=== PATIENT | male | born 1990 | race Caucasian/White ===

== ENCOUNTER 2021-09-29 18:41 | Inpatient (IN) | payer OTHER ==
[2021-09-29 19:18] VITALS: BMI 35.2
[2021-09-29] MEDS ORDERED: SODIUM CHLORIDE 1,000 ML IV STA (21:13)
[2021-09-29 22:00] LABS: HEMATOCRIT 44.6 % (35.4-49); HEMOGLOBIN 15.3 GM/dL (11.7-16.9); MCH 30.8 pg (25.7-33.7); MCHC 34.2 g/dl (32.0-35.9); MEAN CELL VOLUME 89.8 fl (80-96); MEAN PLT VOLUME 7.9 fl (7.5-11.1); PLATELET COUNT 236 10^3/uL (134-434); RBC 4.96 M/mm3 (4.00-5.60); RDW 13.2 % (11.9-15.9); WHITE BLOOD COUNT 13.2 K/mm3 (4.0-10.0)
[2021-09-29 22:24] LABS: CALCIUM 8.6 mg/dL (8.5-10.1)
[2021-09-29 22:25] LABS: ALBUMIN 3.8 g/dl (3.4-5.0); BLOOD UREA NITROGEN 7.3 mg/dL (7-18)
[2021-09-29 22:28] LABS: CREATININE 0.9 mg/dL (0.55-1.3)
[2021-09-29 22:29] LABS: BILIRUBIN,TOTAL 2.4 mg/dL (0.2-1); TOT PROT 7.3 g/dl (6.4-8.2)
[2021-09-29 23:10] LABS: ANISOCYTOSIS 1+; MACROCYTOSIS 0; OVALOCYTE 1+
[2021-09-30] MEDS ORDERED: BENZOCAINE/MENTH/CETYLPYRD CL 1 EACH LOZENGE MM PRN (01:24)
[2021-09-30] MEDS ORDERED: BENZOCAINE/MENTH/CETYLPYRD CL 1 EACH LOZENGE MM ONE (01:32)
[2021-09-30] MEDS ORDERED: PIPERACILLIN/TAZOB 4.5 GM 4.5 GM in DEXTROSE 5%-WATER 100 ML IVPB ONE (01:56)
[2021-09-30] MEDS ORDERED: PIPERACILLIN/TAZOB 4.5 GM 4.5 GM/100 ML BAG IVPB ONE (02:14)
[2021-09-30] MEDS ORDERED: ONDANSETRON 4 MG/2 ML VIAL IVPUSH ONE (02:59)
[2021-09-30] MEDS ORDERED: ACETAMINOPHEN 1000 MG/100 ML BAG IVPB ONE (02:59)
[2021-09-30] MEDS ORDERED: SODIUM CHLORIDE 0.45% 1,000 ML IV SCH (03:30)
[2021-09-30] MEDS ORDERED: ONDANSETRON 4 MG/2 ML VIAL ONE (04:12)
[2021-09-30] MEDS ORDERED: ACETAMINOPHEN INJECTION 100 ML IVPB ONE (04:12)
[2021-09-30 05:05] LABS: EPI CELLS 2 /uL (0-25.1); HYALINE CASTS 0 /uL (0-3.1); URINE APPEARANCE CLEAR; URINE BACTERIA 2 /uL (0-1359); URINE BILIRUBIN NEGATIVE (NEGATIVE); URINE COLOR DK YELLOW; URINE GLUCOSE (UA) NEGATIVE (NEGATIVE); URINE KETONE NEGATIVE (NEGATIVE); URINE LEUK ESTERASE NEGATIVE (NEGATIVE); URINE NITRITE NEGATIVE (NEGATIVE); URINE PROTEIN 1+ (NEGATIVE); URINE RBC 10 /uL (0-23.9); URINE WBC 7 /uL (0-25.8)
[2021-09-30] MEDS: LACTATED RINGERS SOLUTION 1,000 ML/1,000 ML INFUS.BAG IV SCH ×2 (06:10→17:00)
[2021-09-30] MEDS: ENOXAPARIN NA (PORCINE) 40 MG/0.4 ML DISP.SYRIN SQ SCH (10:21)
[2021-09-30] MEDS: ONDANSETRON 4 MG/2 ML VIAL IVPUSH PRN ×2 (10:22→22:18)
[2021-09-30 11:05] LABS: BASO % 0.1 % (0-2.0); EOS % 0.7 % (0-4.5); HEMATOCRIT 39.5 % (35.4-49); HEMOGLOBIN 13.5 GM/dL (11.7-16.9); LYMPH % 3.9 % (8-40); MCH 30.8 pg (25.7-33.7); MCHC 34.3 g/dl (32.0-35.9); MEAN PLT VOLUME 8.2 fl (7.5-11.1); NEUT % 86.3 % (42.8-82.8); PLATELET COUNT 184 10^3/uL (134-434); RBC 4.39 M/mm3 (4.00-5.60)
[2021-09-30] MEDS ORDERED: PIPERACILLIN/TAZOB 3.375 GM 3.375 GM in DEXTROSE 5%-WATER - 50 ML IVPB SCH (11:30)
[2021-09-30 11:32] LABS: CREATININE 0.9 mg/dL (0.55-1.3)
[2021-09-30 11:33] LABS: ALBUMIN 3.4 g/dl (3.4-5.0); BLOOD UREA NITROGEN 7.7 mg/dL (7-18); CALCIUM 8.2 mg/dL (8.5-10.1)
[2021-09-30 11:36] LABS: BILIRUBIN,DIRECT 2.3 mg/dL (0.0-0.2)
[2021-09-30 11:37] LABS: PHOSPHOROUS 2.4 mg/dL (2.5-4.9); TOT PROT 6.2 g/dl (6.4-8.2)
[2021-09-30 13:57] LABS: INR 1.28 (0.83-1.09); PROTHROMBIN TIME (PATIENT) 14.8 SEC (9.7-13.0)
[2021-09-30 14:05] LABS: COCAINE, UR NEGATIVE (NEGATIVE)
[2021-09-30 14:06] LABS: METHADONE, UR NEGATIVE (NEGATIVE); PHENCYCLIDINE,URINE NEGATIVE (NEGATIVE); URINE BENZODIAZEPINES NEGATIVE (NEGATIVE)
[2021-09-30 14:11] LABS: OPIATES, URI NEGATIVE (NEGATIVE); URINE AMPHETAMINES NEGATIVE (NEGATIVE); URINE BARBITURATES NEGATIVE (NEGATIVE)
[2021-09-30 14:55] LABS: HIV INTERPRETATION NEGATIVE (NEGATIVE)
[2021-09-30] MEDS ORDERED: PIPERACILLIN/TAZOBACTAM 3.375 GM VIAL IVPB ONE (15:21)
[2021-09-30] MEDS ORDERED: DEXTROSE 5%-WATER - 50 ML IVPB ONE (15:22)
[2021-09-30] MEDS ORDERED: IBUPROFEN 800 MG/8 ML IJ IVPB ONE (17:44)
[2021-09-30] MEDS ORDERED: PIPERACILLIN/TAZOB 4.5 GM 4.5 GM in DEXTROSE 5%-WATER 100 ML IVPB SCH (18:00)
[2021-09-30] MEDS ORDERED: DEXTROSE 5%-WATER 100 ML IVPB ONE (18:42)
[2021-09-30] MEDS ORDERED: PIPERACILLIN/TAZOBACTAM 4.5 GM VIAL IVPB ONE (18:42)
[2021-09-30] MEDS: PIPERACILLIN/TAZOB 4.5 GM 4.5 GM in DEXTROSE 5%-WATER 100 ML IVPB SCH (18:43)
[2021-09-30 22:57] LABS: BASO % 0.1 % (0-2.0); EOS % 0.7 % (0-4.5); HEMATOCRIT 39.2 % (35.4-49); HEMOGLOBIN 13.5 GM/dL (11.7-16.9); LYMPH % 5.7 % (8-40); MCH 30.7 pg (25.7-33.7); MCHC 34.5 g/dl (32.0-35.9); MEAN PLT VOLUME 8.3 fl (7.5-11.1); MONO % 7.5 % (3.8-10.2); PLATELET COUNT 183 10^3/uL (134-434); RDW 13.1 % (11.9-15.9); WHITE BLOOD COUNT 9.9 K/mm3 (4.0-10.0)
[2021-09-30 23:18] LABS: CALCIUM 8.3 mg/dL (8.5-10.1)
[2021-09-30 23:19] LABS: ALBUMIN 3.2 g/dl (3.4-5.0); BLOOD UREA NITROGEN 7.9 mg/dL (7-18)
[2021-09-30 23:23] LABS: BILIRUBIN,TOTAL 3.3 mg/dL (0.2-1)
[2021-09-30 23:24] LABS: TOT PROT 6.3 g/dl (6.4-8.2)
[2021-10-01] MEDS ORDERED: DEXTROSE 5%-WATER 100 ML IVPB ONE ×2 (00:14→10:28)
[2021-10-01] MEDS ORDERED: PIPERACILLIN/TAZOBACTAM 4.5 GM VIAL IVPB ONE ×2 (00:14→10:27)
[2021-10-01] MEDS: PIPERACILLIN/TAZOB 4.5 GM 4.5 GM in DEXTROSE 5%-WATER 100 ML IVPB SCH ×2 (02:18→10:34)
[2021-10-01] MEDS ORDERED: POTASSIUM CHLORIDE TABS 20 MEQ TABLET.ER (FP) PO ONE (02:25)
[2021-10-01] MEDS: KCL 10 MEQ IVPB 10 MEQ/100 ML INFUS.BAG IVPB SCH ×3 (03:35→10:06)
[2021-10-01] MEDS ORDERED: ACETAMINOPHEN 1000 MG/100 ML BAG IVPB ONE (04:04)
[2021-10-01] MEDS ORDERED: IBUPROFEN 800 MG/8 ML IJ IVPB ONE (06:15)
[2021-10-01] MEDS: LACTATED RINGERS SOLUTION 1,000 ML/1,000 ML INFUS.BAG IV SCH (06:20)
[2021-10-01 07:44] LABS: BASO % 0.1 % (0-2.0); EOS % 1.3 % (0-4.5); HEMATOCRIT 38.8 % (35.4-49); LYMPH % 5.2 % (8-40); MCH 30.2 pg (25.7-33.7); MCHC 33.5 g/dl (32.0-35.9); MEAN CELL VOLUME 90.3 fl (80-96); MEAN PLT VOLUME 8.5 fl (7.5-11.1); MONO % 7.8 % (3.8-10.2); NEUT % 85.6 % (42.8-82.8); PLATELET COUNT 184 10^3/uL (134-434); RDW 13.2 % (11.9-15.9); WHITE BLOOD COUNT 11.2 K/mm3 (4.0-10.0)
[2021-10-01 08:10] LABS: ALBUMIN 3.2 g/dl (3.4-5.0); MAGNESIUM 2.1 mg/dL (1.8-2.4)
[2021-10-01 08:12] LABS: BLOOD UREA NITROGEN 7.7 mg/dL (7-18); CALCIUM 8.3 mg/dL (8.5-10.1); HDL CHOLESTEROL 9 mg/dL (40-60)
[2021-10-01 08:13] LABS: LDL CHOLESTEROL (ONLY SJRH) 73 mg/dL (5-100); PHOSPHOROUS 2.5 mg/dL (2.5-4.9)
[2021-10-01 08:14] LABS: BILIRUBIN,TOTAL 4.1 mg/dL (0.2-1)
[2021-10-01 08:15] LABS: CHOLESTEROL 126 mg/dL (50-200); CREATININE 0.9 mg/dL (0.55-1.3)
[2021-10-01 08:16] LABS: TRIGLYCERIDES 278 mg/dL (0-150)
[2021-10-01 08:17] LABS: TOT PROT 6.1 g/dl (6.4-8.2)
[2021-10-01] MEDS ORDERED: IBUPROFEN 400 MG TABLET (FP) PO PRN (10:24)
[2021-10-01] MEDS: ENOXAPARIN NA (PORCINE) 40 MG/0.4 ML DISP.SYRIN SQ SCH (10:34)
[2021-10-01] MEDS: ONDANSETRON 4 MG/2 ML VIAL IVPUSH PRN (10:35)
[2021-10-01 11:25] VITALS: BP 127/77; PULSE 101; TEMP 99.2
[2021-10-03 18:07] LABS: EPSTEIN BARR ANTIBODY IgM <36.0 U/mL (0.0-35.9)
== END 2021-10-01 13:58 | disposition short-term general hospital (02) | DRG 720 ==
LOC: JER 18:41 → JERBED 09-30 02:43 → J5S 09-30 06:21
PROVIDERS: ADMIT Hospitalist; ATTEND Internal Medicine
DX: A41.9 Sepsis, unspecified organism (principal); C91.01 Acute lymphoblastic leukemia, in remission; R17 Unspecified jaundice; A08.4 Viral intestinal infection, unspecified; R74.01 Elevation of levels of liver transaminase levels; K52.9 Noninfective gastroenteritis and colitis, unspecified; R50.9 Fever, unspecified; J02.9 Acute pharyngitis, unspecified; R00.0 Tachycardia, unspecified; F12.90 Cannabis use, unspecified, uncomplicated; D72.829 Elevated white blood cell count, unspecified; K76.0 Fatty (change of) liver, not elsewhere classified; Z72.89 Other problems related to lifestyle
CPT/HCPCS: 36415; 71046-TC-FY; 74177-TC; 74181-TC; 76705-TC; 80053; 80061; 80307; 81003; 82248; 82550; 82728; 83010; 83036; 83540; 83550; 83615; 83690; 83735; 84100; 85025; 85384; 85610; 86038; 86140; 86308; 86663; 86664; 86665; 86694; 86704; 86708; 86709; 86803; 87040; 87045; 87046; 87070; 87086; 87186; 87205; 87324; 87340; 87389; 87449; 87516; 87517; 87522; 87536; 87651; 87799; 87804; 87902; 93005; 93010; 99285-25; C9803-CS; U0003; U0005